=== PATIENT | female | born 1955 | race Native Hawaiian/Other Pacific Islander ===

== ENCOUNTER 2019-03-18 11:51 | Outpatient (CLI) | payer OTHER | END 2019-03-18 19:19 | disposition home or self-care (01) | LOC: RAD 11:51 | DX: M47.817 Spondylosis without myelopathy or radiculopathy, lumbosacral region (principal) ==

== ENCOUNTER 2019-06-15 07:23 | Day surgery (SDC) | payer OTHER ==
[~2019-06-15] VITALS: Ht 30.5 cm; Wt 0.5 kg
== END 2019-06-15 09:15 | disposition home or self-care (01) ==
LOC: OR 07:23
PROC: 3E0T3BZ Introduction of Anesthetic Agent into Peripheral Nerves and Plexi, Percutaneous Approach (ICD-10-PCS; principal; 2019-06-15)
PROC: 3E0T33Z Introduction of Anti-inflammatory into Peripheral Nerves and Plexi, Percutaneous Approach (ICD-10-PCS; 2019-06-15)
PROC: BR16YZZ Fluoroscopy of Lumbar Facet Joint(s) using Other Contrast (ICD-10-PCS; 2019-06-15)
DX: M47.817 Spondylosis without myelopathy or radiculopathy, lumbosacral region (principal)
CPT/HCPCS: J1100; J2001